=== PATIENT | female | born 1985 | race Caucasian/White ===

== ENCOUNTER 2023-04-12 14:42 | Emergency (ER) | payer OTHER, BC ==
[~2023-04-12] VITALS: Ht 162.6 cm; Wt 108.9 kg
[2023-04-12 14:55] VITALS: BP 164/98
--- NOTE | 2023-04-12 14:55 | NUR ---
ARRIVAL PT AMBULATES TO ED5 WITH C/O SHAKINESS, N/V THAT STARTED TODAY. PT STATES SHE IS ON A BUSINESS TRIP FROM OUT [place] AND HAD 2 OF HER WEEKLY INSULIN SHOTS THAT MALFUNCTED AND WAS UNABLE TO ADMINISTER THE MEDICATION. PT STATES THAT SHE HAD HER PCP SEND AN RX TO HER BUT WAS UNABLE TO GET IT FILLED AT THE PHARMACY DUE TO IT BEING TOO SOON FOR ANOTHER REFILL. PT STATES IS WAS 04/02/23 THAT SHE RECIEVED HER DOSE. PT TAKES METFORMIN AND HAS BEEN TAKING RX. ON ASSESSMENT PTS BG IS 97. VITALS OBTAINED. NOTIFIED OF PTS ARRIVAL.
[2023-04-12 15:19] LABS: BASOPHIL # 0.1 10^3/uL (0.0-0.1); BASOPHIL % 0.3 % (0.0-0.2); EOSINOPHIL # 0.1 10^3/uL (0.0-0.2); EOSINOPHIL % 0.3 % (0.0-5.0); LYMPHOCYTES # 3.84 10^3/uL1 (1.0-4.8); MEAN CORP HGB 28.6 pg (26-34); MONOCYTES # 0.8 10^3/uL (0.3-0.8); MONOCYTES % 5.3 % (5.0-12.0); NEUTROPHIL # 10.6 10^3/uL (1.8-7.7); NEUTROPHILS % 68.9 % (41.0-85.0); PLATELET COUNT 297 10^3/uL (150-400); RED CELL DISTRIBUTION WIDTH 12.8 % (11.5-14.5)
--- NOTE | 2023-04-12 15:21 | PCM.EKG ---
[facility] Test Date: 2023-04-12 Test Time: 15:13:14 Pat Name: PHILLIP JOHNS Department: ER Room: Gender: Female Serger: MISTY : 1985 Requested By: JARRED IVEY Order Number: [id number] Reading MD: J Carlos Ivey Measurements Intervals [place] Rate: 90 P: -3 MS: 126 QRS: 23 QRSD: 91 T: 22 QT: 368 QTc: 451 Interpretive Statements Sinus rhythm Consider inferior infarct No previous ECG available for comparison Electronically Signed On 04-13-2023 06:42:05 CDT by J Carlos Ivey Please click the below link to view image of tracing.
[2023-04-12 15:37] LABS: CARBON DIOXIDE 27.4 mmol/L (20.0-32)
--- NOTE | 2023-04-12 16:05 | ER.PDOC ---
General Chief Complaint: General Complaint Stated Complaint: GENERAL TRAVEL OUT OF US: No Time seen by MD: 14:55 Source: patient Exam Limitations: no limitations History of Present Illness Initial Comments Patient is a 37-year-old female with a past medical history of diabetes hypertension cholesterol anxiety and depression who comes in with feeling shaky over the past week. Patient states that she supposed be taking Trulicity once weekly shot she states that she is here traveling and she brought a couple pens with her but they both misfired and she is just trying to get a refill. She states that she does not feel shaky and little nauseous and feels foggy does not know makes her symptoms better or worse denies any other symptoms or concerns. Past Medical History Medical History: diabetes, high cholesterol, hypertension, other Surgical History: no surgical history Family History Significant Family History: no pertinent family hx Social History Smoking: greater than 1 pack/day Alcohol Use: rarely Drug Use: none Reviewed Nursing Reviewed: Vital Signs, Abn. Noted, Nursing Assessment Review of Systems Constitutional: malaise EENTM: no symptoms reported Respiratory: no symptoms reported Cardiovascular: no symptoms reported Gastrointestinal: nausea Genitourinary: no symptoms reported Musculoskeletal: no symptoms reported Skin: no symptoms reported Psychiatric/Neurological: no symptoms reported Hematologic/Lymphatic: no symptoms reported Immunological/Allergic: no symptoms reported Physical Exam General Appearance: Anxious EENT: eyes nml inspection, nml ENT inspection Neck: Non-Tender, Full Range of Motion Respiratory: chest non-tender, lungs clear CVS: reg rate & rhythm, no murmur Gastrointestinal: Normal Bowel Sounds, Non Tender, Soft Back: No CVA Tenderness Extremities: Non-Tender Neurologic/Psychiatric: No Motor/Sensory Deficits Skin: Normal Color Lymphatic: No Adenopathy Results/Orders Results/Orders Orders - JARRED IVEY MD Cbc With Auto Diff (04/12/23 15:05) Comprehensive Metabolic Panel (04/12/23 15:05) EKG (04/12/23 15:08) Vital Signs Date Time Temp Pulse Resp B/P (MAP) Pulse Ox O2 Delivery O2 Flow Rate FiO2 04/12/23 14:55 98.3 93 18 04/12/23 14:55 98.3 93 18 164/98 (120) 95 Room Air* 0 21 04/12/23 14:55 98.3 93 18 95 Laboratory Tests Test 04/12/23 15:02 04/12/23 15:05 POC Glucose 97 (70 - 110) White Blood Count 15.3 10^3/uL (4.5-11.0) H Red Blood Count 5.04 10^6/uL (4.00-5.20) Hemoglobin 14.4 g/dL (12.0-15.0) Hematocrit 42.9 % (36.0-46.0) Mean Corpuscular Volume 85.1 fL (78-100) Mean Corpuscular Hemoglobin 28.6 pg (26-34) Mean Corpuscular Hemoglobin Concent 33.6 g/dL (33-36.5) Red Cell Distribution Width 12.8 % (11.5-14.5) Platelet Count 297 10^3/uL (150-400) Mean Platelet Volume 12.1 fL (7.8-11.0) H Neutrophils (%) (Auto) 68.9 % (41.0-85.0) Lymphocytes (%) (Auto) 25.0 % (24.0-44.0) Monocytes (%) (Auto) 5.3 % (5.0-12.0) Neutrophils # (Auto) 10.6 10^3/uL (1.8-7.7) H Lymphocytes # (Auto) 3.84 10^3/uL1 (1.0-4.8) Monocytes # (Auto) 0.8 10^3/uL (0.3-0.8) Absolute Immature Granulocyte (auto 0.03 10^3 u/L (0-2) Absolute Eosinophils (auto) 0.1 10^3/uL (0.0-0.2) Immature Granulocytes % 0.20 % (0.00-0.50) Eosinophils % 0.3 % (0.0-5.0) Basophils % 0.3 % (0.0-0.2) H Basophils # 0.1 10^3/uL (0.0-0.1) Sodium Level 138 mmol/L (132-145) Potassium Level 3.8 mmol/L (3.6-5.2) Chloride Level 100.0 mmol/L (96-109) Carbon Dioxide Level 27.4 mmol/L (20.0-32) Anion Gap 14.4 Blood Urea Nitrogen 14 mg/dL (7-18) Creatinine 0.79 mg/dL (0.59-1.40) Estimated GFR () 98.6 (>/=60) Est GFR (CKD-EPI)(Non-Afr Serbian) 81.4 (>/=60) BUN/Creatinine Ratio 17.0 (10.0-20.0) Glucose Level 101 mg/dL (74-106) Calcium Level 9.7 mg/dL (8.4-10.5) Total Bilirubin 0.3 mg/dL (0.2-1.0) Aspartate Amino Transferase (AST) 10 U/L (0-35) Alanine Aminotransferase (ALT) 19 U/L (12-78) Alkaline Phosphatase 111 U/L (50-136) Total Protein 7.2 g/dL (6.4-8.2) Albumin 3.7 g/dL (3.4-5.0) Globulin 3.5 Albumin/Globulin Ratio 1.057 Progress Progress Patient here mostly wanting med refill but feeling shaky we will obtain labs EKG does continue to monitor. My interpretation of patient's work-up is as follows patient's chemistry is all within normal limits patient's CBC does show an elevated white count but nothing super significant her EKG shows a heart rate of 90 sinus rhythm no STEMI QT of 368 [id number] states that she feels the same really just wants a refill we discussed that is likely more because her blood sugar is low but that I will refill her Trulicity prescription. ER DEPART Departure Time of Disposition: 16:05 Disposition: 01 HOME / SELF CARE / HOMELESS Impression: Primary Impression: Medication refill Condition: Stable Patient Instructions: Glucose, Blood Sugar, Fasting Blood Sugar Referrals: PCP,UNKNOWN (PCP) PRIMARY CARE PROVIDER Additional Instructions: Follow-up with your primary care provider within the next week. If any new per sistent or worsening symptoms or concerns seek medical attention. Please take all medications as prescribed. Duration or Time Spent with Pa: 30 JARRED IVEY MD Apr 12, 2023 16:05
[2023-04-12 16:07] VITALS: BP 122/86
== END 2023-04-12 16:09 | disposition home or self-care (01) ==
LOC: ER 14:42
DX: F41.9 Anxiety disorder, unspecified (principal); F32.A Depression, unspecified; E11.9 Type 2 diabetes mellitus without complications; E78.00 Pure hypercholesterolemia, unspecified; I10 Essential (primary) hypertension; F17.210 Nicotine dependence, cigarettes, uncomplicated; Z76.0 Encounter for issue of repeat prescription
CPT/HCPCS: 36415; 80053; 82948; 85025; 93005; 99284